=== PATIENT | female | born 1970 | race African-American/Black ===

== ENCOUNTER 2016-05-17 09:19 | Inpatient (IN) | payer OTHER ==
[2016-05-04 12:23] LABS: HEMATOCRIT 38.3 % (36.0-48.0); HEMOGLOBIN 12.6 g/dL (12.0-16.0)
--- NOTE | ~2016-05-17 | OP ---
Record Of Operation [facility] [address] [place] [address] NAME: NELSON OROPEZA : 74 STATUS : ADM Diego PAT#: [id number] AGE: 46 ADM/REG DATE : 05/17/16 MR#: [id number] REPORT SERV DATE: 05/18/16 DICTATED BY: MEG MCCONNELL DATE: 05/18/16 REPORT STATUS : Draft TRANSCRIBED BY: HUMBERTO DATE: 05/18/16 DATE OF PROCEDURE: 05/17/2016 PREOPERATIVE DIAGNOSES: 1. Left posterior tibial tendon dysfunction. 2. Left calcaneal valgus. 3. Left posterior tibial tendon tenosynovitis. 4. Left equinus. 5. Left severe first metatarsal primus varus. 6. Left hallux valgus. POSTOPERATIVE DIAGNOSES: 1. Left posterior tibial tendon dysfunction. 2. Left calcaneal valgus. 3. Left posterior tibial tendon tenosynovitis. 4. Left equinus. 5. Left severe first metatarsal primus varus. 6. Left hallux valgus. 7. Left posterior tibial tendon longitudinal tearing. PROCEDURES: 1. Left distal gastroc recession. 2. Left medial calcaneal slide osteotomy with internal fixation. 3. Left lateral Tarango calcaneal lengthening osteotomy with internal fixation. 4. Left posterior tibial tendon tenosynovectomy with longitudinal tearing repair. 5. Left deep flexor digitorum longus tendon transfer into the navicular with internal fixation. 6. Left first metatarsophalangeal joint arthrodesis with internal fixation. SURGEON: Anthony Mcconnell, D.P.M. ANESTHESIA: General local anesthetic. ESTIMATED BLOOD LOSS: Minimal. COMPLICATIONS: None. INJECTABLES: Approximately 60 mL of a 1:1 mixture of 1% lidocaine plain and 0.5% Marcaine plain. MATERIALS: 6.7 mm cannulated screw from [employer], opening lateral calcaneal wedge plate from [employer], first metatarsophalangeal joint fusion plate with locking/nonlocking screw fixation, 5.0 tenodesis anchor from [employer], #2 FiberWire, 2-0, 4-0 Vicryl, 4-0 nylon skin carlota, 7-Malagasy LYNDA drain. PROCEDURE IN DETAIL: Under mild sedation, the patient was brought to the operating room and Record Of Operation [facility] [address] [place]. [address] NAME: NELSON OROPEZA : 74 STATUS : ADM Diego PAT#: [id number] AGE: 46 ADM/REG DATE : 05/17/16 MR#: [id number] REPORT SERV DATE: 05/18/16 DICTATED BY: MEG MCCONNELL DATE: 05/18/16 REPORT STATUS : Draft TRANSCRIBED BY: MODL DATE: 05/18/16 placed on the operating table in a lateral position. Following general anesthesia, local anesthesia obtained about the patient's left foot, ankle, and lower leg. The left foot, ankle, and lower leg were scrubbed, prepped, and draped in usual aseptic manner. Attention was directed to the procedure. Procedure #1 is left distal gastroc recession. Attention was directed to the medial aspect of the patient's left distal gastroc aponeurosis where the leg was frog-legged and held in position by the orthopedic physician golf course assistant. At this time, an approximate 3 cm incision was made just medial to midline at the level of distal gastroc aponeurosis. Blunt dissection was continued down the level of the deep fascia. The deep fascia was pierced and deep [place] retraction was placed deep to the deep fascia. A plane was created between the visible gastroc aponeurosis and the deep fascia. Finger dissection ensued and with the foot in dorsiflexed position, release of the distal gastroc aponeurosis was performed from medial to lateral. Underlying soleus muscle belly was visualized. At this time, excellent lengthening was achieved and copious irrigation was ensued. Deep fascia was reapproximated and coapted utilizing 2-0 Vicryl. Subcutaneous tissue was reapproximated and coapted utilizing 4-0 Vicryl, skin was reapproximated and coapted utilizing 4-0 nylon interrupted horizontal suture technique. Attention now directed to the next procedure. Next procedure was left medial calcaneal slide osteotomy with internal fixation. Attention now was directed to the lateral aspect of the patient's left calcaneus where an approximate 3 cm incision was made over the lateral aspect of the left calcaneal body. Incision was deepened to subcutaneous tissue with care being taken to identify and retract all neurovascular structures with deep protection of the sural nerve. At this time, blunt dissection continued through the subcutaneous tissue. A sharp periosteal incision was made exposing the midportion of the lateral wall of the calcaneus. At this time, an osteotomy was created from lateral to medial within the mid calcaneal body region with care was being taken to prevent over penetration. Loosening of the posterior aspect of the calcaneus ensued and the calcaneal slide was performed medially. Approximately 8 mm of translation was performed. Next, a guidewire for the 6.7 cannulated screw was placed across the osteotomy site from posterior inferior to superior anterior. Care was being taken to prevent over penetration within the subtalar joint. Excellent positioning was noted on lateral and calcaneal axial views. A 6.7 screw was placed across the osteotomy site with excellent compression noted. Guidewire was removed and again fluoroscopy confirmed excellent positioning on the previously mentioned views. Copious irrigation ensued. Attention now directed to the next procedure. Next was left lateral lengthening Tarango calcaneal osteotomy with internal fixation and bone allografting. At this time, attention was directed to the lateral aspect of the patient's left calcaneus where a curvilinear 4 cm incision was made overlying the lateral calcaneus and calcaneal cuboid joint region. The incision was deepened to subcutaneous tissue with care being taken to identify and retract all vital neurovascular structures. All bleeders were cauterized and ligated as necessary. At this time, the inferior peroneal tendons were identified and superiorly the extensor brevis muscle belly border was identified. At this time, partial reflection of the EDB muscle belly was performed and deep retraction of the Record Of Operation [address] [address] NAME: NELSON OROPEZA : 74 STATUS : ADM Diego PAT#: [id number] AGE: 46 ADM/REG DATE : 05/17/16 MR#: [id number] REPORT SERV DATE: 05/18/16 DICTATED BY: MEG MCCONNELL DATE: 05/18/16 REPORT STATUS : Draft TRANSCRIBED BY: MODMilton DATE: 05/18/16 inferior peroneal tendons was performed. The calcaneocuboid joint was visualized and marked and approximately 1.3 to 1.5 mm from the CC joint the calcaneal osteotomy was created perpendicular to the calcaneus from lateral to medial. At this time without penetrating the medial aspect of the osteotomy, the saw was removed and osteotomes utilized to gently splay the osteotomy. This was in a trapezoidal-type fashion. At this time with gentle distraction, opening wedge plate was inserted into the lateral calcaneus with approximately 6 mm of distraction. Excellent position was noted. Fixation was placed throughout the plate with excellent purchase present. Next, crushed corticocancellous bone was packed within the opening wedge site. Excellent positioning was noted. Excellent correction was appreciated as well. Gentle irrigation ensued. The deep superficial fascia reapproximated and coapted utilizing 2-0 and 4-0 Vicryl to both incision sites laterally. The incision reapproximated and coapted using 4-0 nylon. Attention now directed to the next procedure. Next procedure was left posterior tibial tendon tenosynovectomy with longitudinal repair. Attention was now directed to the medial aspect of the patient's left arch where an incision was made along the course of the posterior tibial tendon beginning just inferior and posterior to the medial malleolus extending distal to the navicular tuberosity. The incision was deepened to subcutaneous tissue with care being taken to identify and retract all vital neurovascular structures. All bleeders were cauterized and ligated as necessary. At this time, incision was made through the posterior tibial tendon sheath. The posterior tibial tendon sheath was then reflected dorsally, plantarly, anteriorly, and inferiorly exposing the posterior tibial tendon. Severe tenosynovitis was present with severe longitudinal tearing noted as well. The small strands of the longitudinal tearing were excised and all synovitis was resected with a rongeur. At this time, the tendon itself was tubularized utilizing 2-0 FiberWire in a continuous suture fashion. Attention now directed to the navicular insertion where accessory navicular was present and was excised. Attention now directed to the next procedure. Next procedure was left deep flexor digitorum longus tendon transfer into the navicular with internal fixation. At this time, dissection continued inferior to the posterior tibialis tendon sheath exposing the FDL tendon. The tendon itself was tracked to the level of the K[place] of [place], was severed at that level with deep [place] retraction and protecting all neurovascular structures. At this time once the tendon was severed, FiberLoop from [employer] was utilized to tag the end of the tendon. At this time, a guidewire was placed through the medial aspect of the navicular under fluoroscopy guidance with care being taken to avoid intra-articular excursion. At this time, tendon was sized and the appropriate drill size was performed through the navicular and the guidewire was removed and the tendon was placed from plantar to dorsal through the navicular and the foot was gently plantar flexed and inverted to maintain tensioning of the transfer. At this time, tenodesis suture anchor was placed within the navicular with excellent positioning and excellent fixation and stabilization present to the tendon. At this time, oversewing with the FiberLoop to the posterior tibial tendon ensued. This was done in an inverted plantar flexed position. Copious irrigation ensued. Attention directed to closure where the tendon sheath reapproximated and coapted utilizing 2-0 Vicryl. A 7-Malagasy LYNDA drain was placed within the deep space in the central compartment of the foot in order to prevent hematoma formation. Record Of Operation [facility] [address] [place]. [address] NAME: NELSON OROPEZA : 74 STATUS : ADM Diego PAT#: [id number] AGE: 46 ADM/REG DATE : 05/17/16 MR#: [id number] REPORT SERV DATE: 05/18/16 DICTATED BY: MEG MCCONNELL DATE: 05/18/16 REPORT STATUS : Draft TRANSCRIBED BY: HUMBERTO DATE: 05/18/16 The deep superficial fascia was reapproximated using 2-0 and 4-0 Vicryl, skin was reapproximated and coapted utilizing skin carlota and care was being taken to not sew the drain. Attention now directed to the last procedure. Last procedure was left first metatarsophalangeal arthrodesis with internal fixation. Attention was directed to the dorsal aspect of the patient's left first metatarsophalangeal joint where an approximate 5-6 cm incision was made medial and parallel to the extensor tendon involving the contour of the deformity. The incision was deepened to the subcutaneous tissue with care being taken to identify and retract all vital neurovascular structures. All bleeders were cauterized and ligated as necessary. At this time, linear capsular incision was made medial and parallel to the extensor tendon. The head of the metatarsal base and the proximal phalanx were isolated and utilizing cup and cone reamers, the head of metatarsal base and proximal phalanx were reamed of remaining cartilaginous tissue. At this time, manual reduction of the intermetatarsal angle was performed and reduction of the great toe was performed in erected position as temporary guidewire was placed across the joint. Excellent positioning was noted on fluoroscopy as well as with loading with the lid from the back table. Permanent fixation was placed throughout including interfrag screw and fixation to the dorsal plating system from [employer]. With locking and nonlocking screw fixation, excellent compression was noted and excellent stabilization was present. Guidewire was removed. Fluoroscopy confirmed excellent positioning. Capsular tissues reapproximated and coapted using 2-0 Vicryl. After copious irrigation, the subcutaneous tissue reapproximated and coapted using 4-0 Vicryl, skin was reapproximated and coapted utilizing 4-0 nylon in a continuous suture technique. A well- padded sterile dressing placed about the left foot, ankle, and lower leg. A well-padded posterior splint was also applied. The patient tolerated the procedure and anesthesia well and was transferred to recovery room with vital signs stable and vascular status intact to all toes. Following a period of postoperative monitoring, the patient will be transferred to the recovery room and admitted for postoperative pain control. Myself or the nurse practitioner will follow the patient tomorrow. BILL/HUMBERTO Anthony Mcconnell D.P.M. / [id number] CC: Anthony Mcconnell D.P.M.
[~2016-05-17 09:19] MED LIST: ADVIL PO; ATEN50 PO; COLON CLEANSE; IRON; K-TABS10 MEQ PO; KLOR-CON20 MEQ PO; MULTIVITAMI1 PO; POTASSIUM GLUCO99 MG PO
[2016-05-17 10:51] LABS: BUN (BLOOD UREA NITROGEN) 14 MG/DL (6-23); CALCIUM, SERUM 8.8 MG/DL (8.5-10.4); CHLORIDE, SERUM 106 MMOL/L (96-112); CO2 (CARBON DIOXIDE) 29 MMOL/L (24-34); CREATININE 0.71 MG/DL (0.55-1.02); GFR AFRICAN AMERICAN 120 ML/MIN (>=60); GFR NON AFRICAN AMERICAN 104 ML/MIN (>=60); POTASSIUM, SERUM 4.1 MMOL/L (3.5-5.3); SODIUM, SERUM 140 MMOL/L (135-148)
[2016-05-17 10:52] LABS: GLUCOSE, SERUM 86 MG/DL (60-99)
[2016-05-19] MEDS ORDERED: PR25 PO (12:32)
[2016-05-19] MEDS ORDERED: DIL2TAB PO (12:32)
[2016-05-19] MEDS ORDERED: ELIQUIS 2.5 MG2.5 MG PO (12:32)
[2016-05-19] MEDS ORDERED: PCET PO (12:33)
== END 2016-05-19 13:41 | disposition home or self-care (01) | DRG 502 ==
LOC: SDC 09:19 → 3SO 16:01
PROVIDERS: Anesthesiology; Podiatrist Foot & Ankle Surgery
PROC: 0KST0ZZ Reposition Left Lower Leg Muscle, Open Approach (ICD-10-PCS; principal; 2016-05-17 10:45)
PROC: 0QSM04Z Reposition Left Tarsal with Internal Fixation Device, Open Approach (ICD-10-PCS; 2016-05-17 10:45)
PROC: 0LBP0ZZ Excision of Left Lower Leg Tendon, Open Approach (ICD-10-PCS; 2016-05-17 10:45)
PROC: 0SGN04Z Fusion of Left Metatarsal-Phalangeal Joint with Internal Fixation Device, Open Approach (ICD-10-PCS; 2016-05-17 10:45)
DX: M21.072 Valgus deformity, not elsewhere classified, left ankle (principal); S86.112A Strain of other muscle(s) and tendon(s) of posterior muscle group at lower leg level, left leg, initial encounter; M21.172 Varus deformity, not elsewhere classified, left ankle
CPT/HCPCS: 76000; 80048; 85014; 85018; 97116-GP; 97161-GP; A9270-GY; C1713; C1769; J0360; J0690; J1170; J2250; J2370; J2405; J2710; J3010